=== PATIENT | female | born 1965 | race Caucasian/White ===

== ENCOUNTER 2018-04-02 05:49 | Emergency (ER) | payer BC ==
[~2018-04-02] VITALS: Ht 165.1 cm; Wt 99.8 kg
--- OUTSIDE RECORDS SUMMARY | 2018-04-02 05:50 | XMS REPORT | Continuity of Care Document ---
Author Author [facility] Organization [facility] Address Unknown Phone Unavailable Care Team Providers Care Sql Ssrs Ssis Developer Name Role Phone MD Cira, Gely GALICIA Unavailable Insurance Providers Payer name Policy type / Coverage type Policy ID Covered green [place] ID [place] Encounters Encounter Performer Location Date Office Visit Gely Denis MD [facility] Dec 08, 2013 Problems Problem Effective Dates Problem Status HYPERTENSION - BENIGN ESSENTIAL Dec 08, 2013 Active OBESITY, UNSPECIFIED Dec 08, 2013 Active HYPERLIPIDEMIA Dec 08, 2013 Active Procedures Date Description Comments Dec 08, 2013 smoking status Never smoker Medications Medication Instructions Start Date Status TEKTURNA HCT 300-25 MG TABS one tab daily Dec 08, 2013 Active ATORVASTATIN CALCIUM 10 MG TABS one tab daily Dec 08, 2013 Active Vital Signs Date Description Test Result Dec 08, 2013 weight E&M WEIGHT 212 lb Dec 08, 2013 height E&M HEIGHT 65 in Dec 08, 2013 temperature E&M TEMPERATURE 98.1 deg f Dec 08, 2013 pulse rate E&M PULSE RATE 68 /min Dec 08, 2013 blood pressure, systolic BP SYSTOLIC 132 mm Hg Dec 08, 2013 blood pressure, diastolic BP DIASTOLIC 88 mm Hg Results Date Description Test Name Value Reference Interpretation Status Dec 08, 2013 hemoglobin A1C, blood, as % of total hemoglobin HGBA1C 5.3 % <=5.6 Dec 08, 2013 cholesterol, serum CHOLESTEROL 169 mg/dl <=199 Dec 08, 2013 triglyceride, serum, fasting TRIGLYCERIDE 116 mg/dl <=149 Dec 08, 2013 HDL cholesterol, serum HDL 65 mg/dl >=61 Dec 08, 2013 LDL cholesterol, serum LDL 81 mg/dl <=99 Dec 08, 2013 sodium, serum SODIUM 137 MEQ/L mmol/L 135-145 Dec 08, 2013 potassium, serum POTASSIUM 4.0 MEQ/L mmol/L 3.5-5.1 Dec 08, 2013 creatinine, serum CREATININE 0.7 mg/dL 0.5-1.4 Dec 08, 2013 urea nitrogen, blood BUN 12 mg/dL 7-Dec 08, 2013 urea nitrogen/creatinine ratio, serum BUN/CREAT 17 null -Dec 08, 2013 albumin, serum ALBUMIN 4.3 g/dL 3.5-5.0 Dec 08, 2013 calcium, serum CALCIUM 9.8 mg/dL 8.5-10.5 Dec 08, 2013 alanine aminotransferase (SGPT), serum SGPT (ALT) 28 U/L 0-Dec 08, 2013 aspartate aminotransferase (SGOT), serum SGOT (AST) 17 U/L 0-37 Dec 08, 2013 alkaline phosphatase, serum ALK PHOS 72 U/L 39-136 Dec 08, 2013 thyroid stimulating hormone, serum TSH 1.570 uIU/mL 0.360-3.740 Dec 08, 2013 triiodothyronine, serum T3, TOTAL 74 ng/dL Units converted. See lab report for original value. Dec 08, 2013 hemoglobin A1C, blood, as % of total hemoglobin HGBA1C 5.3 % <=5.6 Dec 08, 2013 cholesterol, serum CHOLESTEROL 169 mg/dl <=199 Dec 08, 2013 triglyceride, serum, fasting TRIGLYCERIDE 116 mg/dl <=149 Dec 08, 2013 HDL cholesterol, serum HDL 65 mg/dl >=61 Dec 08, 2013 LDL cholesterol, serum LDL 81 mg/dl <=99 Dec 08, 2013 sodium, serum SODIUM 137 MEQ/L mmol/L 135-145 Dec 08, 2013 potassium, serum POTASSIUM 4.0 MEQ/L mmol/L 3.5-5.1 Dec 08, 2013 creatinine, serum CREATININE 0.7 mg/dL 0.5-1.4 Dec 08, 2013 urea nitrogen, blood BUN 12 mg/dL -Dec 08, 2013 urea nitrogen/creatinine ratio, serum BUN/CREAT 17 null -Dec 08, 2013 albumin, serum ALBUMIN 4.3 g/dL 3.5-5.0 Dec 08, 2013 calcium, serum CALCIUM 9.8 mg/dL 8.5-10.5 Dec 08, 2013 alanine aminotransferase (SGPT), serum SGPT (ALT) 28 U/L 0-65 Dec 08, 2013 aspartate aminotransferase (SGOT), serum SGOT (AST) 17 U/L 0-37 Dec 08, 2013 alkaline phosphatase, serum ALK PHOS 72 U/L 39-136 Dec 08, 2013 thyroid stimulating hormone, serum TSH 1.570 uIU/mL 0.360-3.740 Dec 08, 2013 triiodothyronine, serum T3, TOTAL 74 ng/dL Units converted. See lab report for original value.
--- OUTSIDE RECORDS SUMMARY | 2018-04-02 05:50 | XMS REPORT | Continuity of Care Document ---
Author Author [facility] Organization [facility] Address Unknown Phone Unavailable Care Team Providers Care Hotel Supplies Salesperson Name Role Phone MD Fatuma, Faisal GALICIA Unavailable Insurance Providers Payer name Policy type / Coverage type Policy ID Covered green [place]) [place] Encounters Encounter Performer Location Date Office Visit Faisal Burris MD [facility] Jun 22, 2014 Problems Problem Effective Dates Problem Status HYPERTENSION - BENIGN ESSENTIAL Dec 08, 2013 Active OBESITY, UNSPECIFIED Dec 08, 2013 Active HYPERLIPIDEMIA Dec 08, 2013 Active Procedures Date Description Comments Dec 08, 2013 smoking status Never smoker Jun 22, 2014 smoking status Never smoker Medications Medication Instructions Start Date Status TEKTURNA HCT 300-25 MG TABS one tab daily Dec 08, 2013 Active ATORVASTATIN CALCIUM 10 MG TABS one tab daily Dec 08, 2013 Active Vital Signs Date Description Test Result Dec 08, 2013 weight E&M - 3141-9 WEIGHT 212 lb Dec 08, 2013 height E&M - 8302-2 HEIGHT 65 in Dec 08, 2013 temperature E&M TEMPERATURE 98.1 deg f Dec 08, 2013 pulse rate E&M - 8867-4 PULSE RATE 68 /min Dec 08, 2013 blood pressure, systolic - 8480-6 BP SYSTOLIC 132 mm Hg Dec 08, 2013 blood pressure, diastolic - 8462-4 BP DIASTOLIC 88 mm Hg Jun 22, 2014 height E&M - 8302-2 HEIGHT 65 in Jun 22, 2014 weight E&M - 3141-9 WEIGHT 215 lb Jun 22, 2014 temperature E&M TEMPERATURE 98.0 deg f Jun 22, 2014 pulse rate E&M - 8867-4 PULSE RATE 94 /min Jun 22, 2014 blood pressure, systolic - 8480-6 BP SYSTOLIC 154 mm Hg Jun 22, 2014 blood pressure, diastolic - 8462-4 BP DIASTOLIC 87 mm Hg Results Date Description Test Name [...] 2013 urea nitrogen, blood BUN 12 mg/dL 7-22 Dec 08, 2013 urea nitrogen/creatinine ratio, serum BUN/CREAT 17 null 6-25 Dec 08, 2013 albumin, serum ALBUMIN 4.3 g/dL [...] TSH 1.570 uIU/mL 0.360-3.740 Dec 08, 2013 triiodothyronine (T3), serum T3, TOTAL 74 ng/dL Units converted. [...] urea nitrogen/creatinine ratio, serum BUN/CREAT 17 null 6-25 Dec 08, 2013 albumin, serum ALBUMIN 4.3 g/dL [...] TSH 1.570 uIU/mL 0.360-3.740 Dec 08, 2013 triiodothyronine (T3), serum T3, TOTAL 74 ng/dL Units converted. See lab report for original value.
--- OUTSIDE RECORDS SUMMARY | 2018-04-02 05:50 | XMS REPORT | Continuity of Care Document ---
Author Author [facility] Address Unknown Phone Unavailable Problems Problem Status Onset Date Classification Date Reported Comments Source HYPERTENSION - BENIGN ESSENTIAL Active 12/08/2013 Condition 06/22/2014 Medical Group OBESITY, UNSPECIFIED Active 12/08/2013 Condition 06/22/2014 Medical Group HYPERLIPIDEMIA Active 12/08/2013 Condition 06/22/2014 Medical [facility] Medications Medication Details Route Status Patient Instructions Ordering Provider Order Date Source TEKTURNA HCT 300-25 MG TABS one tab daily Active 12/08/2013 Medical Group ATORVASTATIN CALCIUM 10 MG TABS one tab daily Active 12/08/2013 Medical Group ATORVASTATIN CALCIUM 10 MG TABS one tab daily Active 12/08/2013 [facility] Group Allergies, Adverse Reactions, Alerts Substance Category Reaction Severity Reaction type Status Date Reported Comments Source Immunizations Immunization Date Given Site Status Last Updated Comments Source Results Order Name Results Value Reference Range Date Interpretation Comments Source Chemistry HGBA1C 5.3 % - 5.6 12/08/2013 Medical [facility] Chemistry CHOLESTEROL 169 mg/dl - 199 12/08/2013 Medical [facility] Chemistry TRIGLYCERIDE 116 mg/dl - 149 12/08/2013 [facility] Chemistry HDL 65 mg/dl >=61 12/08/2013 Medical [facility] Chemistry LDL 81 mg/dl - 99 12/08/2013 [facility] Chemistry SODIUM 137 MEQ/L mmol/L 135 - 145 12/08/2013 [facility] POTASSIUM 4.0 MEQ/L mmol/L 3.5 - 5.1 12/08/2013 [facility] CREATININE 0.7 mg/dL 0.5 - 1.4 12/08/2013 [facility] BUN 12 mg/dL 7 - 22 12/08/2013 [facility] Chemistry BUN/CREAT 17 6 - 25 12/08/2013 [facility] ALBUMIN 4.3 g/dL 3.5 - 5.0 12/08/2013 [facility] Chemistry CALCIUM 9.8 mg/dL 8.5 - 10.5 12/08/2013 [facility] Chemistry SGPT (ALT) 28 U/L 0 - 65 12/08/2013 [facility] SGOT (AST) 17 U/L 0 - 37 12/08/2013 [facility] Chemistry ALK PHOS 72 U/L 39 - 136 12/08/2013 [facility] TSH 1.570 uIU/mL 0.360 - 3.740 12/08/2013 Medical [facility] Chemistry T3, TOTAL 74 ng/dL 12/08/2013 [facility] Chemistry HGBA1C 5.3 % - 5.6 12/08/2013 [facility] CHOLESTEROL 169 mg/dl - 199 12/08/2013 [facility] TRIGLYCERIDE 116 mg/dl - 149 12/08/2013 [facility] HDL 65 mg/dl >=61 12/08/2013 [facility] LDL 81 mg/dl - 99 12/08/2013 [facility] SODIUM 137 MEQ/L mmol/L 135 - 145 12/08/2013 [facility] Chemistry POTASSIUM 4.0 MEQ/L mmol/L 3.5 - 5.1 12/08/2013 [facility] CREATININE 0.7 mg/dL 0.5 - 1.4 12/08/2013 [facility] BUN 12 mg/dL 7 - 22 12/08/2013 Medical [facility] Chemistry BUN/CREAT 17 6 - 25 12/08/2013 [facility] ALBUMIN 4.3 g/dL 3.5 - 5.0 12/08/2013 [facility] CALCIUM 9.8 mg/dL 8.5 - 10.5 12/08/2013 Medical [facility] Chemistry SGPT (ALT) 28 U/L 0 - 65 12/08/2013 [facility] Chemistry SGOT (AST) 17 U/L 0 - 37 12/08/2013 [facility] Chemistry ALK PHOS 72 U/L 39 - 136 12/08/2013 [facility] Chemistry TSH 1.570 uIU/mL 0.360 - 3.740 12/08/2013 [facility] Chemistry T3, TOTAL 74 ng/dL 12/08/2013 [facility] Vital Signs Vital Sign Value Date Comments Source Height 65 06/22/2014 [facility] Weight 215 06/22/2014 [facility] Temperature Oral (F) 98.0 F 06/22/2014 [facility] Heart Rate 94 06/22/2014 [facility] Systolic (mm Hg) 154 06/22/2014 [facility] Diastolic (mm Hg) 87 06/22/2014 [facility] Weight 212 12/08/2013 [facility] Height 65 12/08/2013 [facility] Temperature Oral (F) 98.1 F 12/08/2013 [facility] Heart Rate 68 12/08/2013 [facility] Systolic (mm Hg) 132 12/08/2013 [facility] Diastolic (mm Hg) 88 12/08/2013 [facility] Encounters Location Location Details Encounter Type Encounter Number Reason For Visit Attending Provider ADM Date DC Date Status Source [facility] Lab Report [id number] Gely Denis MD 12/08/2013 [facility] [id number] Gely Denis MD 12/08/2013 12/08/2013 [facility] Office Visit [id number] Faiasl Burris MD 06/22/2014 06/22/2014 [facility] Procedures Procedure Code Date Perfomer Comments Source
--- OUTSIDE RECORDS SUMMARY | 2018-04-02 05:50 | XMS REPORT | Continuity of Care Document ---
Author Author [facility] Organization [facility] Address Unknown Phone Unavailable Care Team Providers Care Foundry Molder Name Role Phone MD Cira, Gely GALICIA Unavailable Insurance Providers Payer name Policy type / Coverage type Policy ID Covered alliance party [place] Encounters Encounter Performer Location Date Lab Report Gely Densi MD [facility] Dec 08, 2013 Problems Problem Effective Dates [...]
[2018-04-02] MEDS ORDERED: HYDROCODONE/APAP 10MG-325MG TAB PO ONE (06:15)
--- NOTE | 2018-04-02 07:08 | Diagnostic Imaging Report ---
PROCEDURE:X-RAY LEFT KNEE, THREE OR MORE VIEWS COMPARISON:None. INDICATIONS:LEFT KNEE PAIN FINDINGS: No acute, displaced fracture or dislocation. Joint spaces are well-maintained. Soft tissues are unremarkable. No definite joint effusion. CONCLUSION: No acute osseous abnormality. Dictated by: Jose Aguiar M.D. on 04/02/2018 at 7:16 Electronically approved by: Jose Aguiar M.D. on 04/02/2018 at 7:16
--- NOTE | 2018-04-02 09:37 | Diagnostic Imaging Report ---
TECHNIQUE: Magnetic resonance imaging of the LEFT KNEE was performed WITHOUT injected contrast. HISTORY: Left knee pain COMPARISON: None available. FINDINGS: LIGAMENTS AND TENDONS: ACL: Intact PCL: Intact Collateral ligaments: Intact Iliotibial band: Unremarkable Popliteal tendon: Intact Extensor mechanism: Intact JOINT: Menisci: Medial: Horizontal tear of the posterior horn with degeneration and partial tearing of the posterior root results in meniscal extrusion. Lateral: Intact Articular Cartilage: Medial Compartment: Partial-thickness cartilage loss. Lateral Compartment: No focal defect. Patellofemoral Compartment: Partial-thickness cartilage loss. Joint Fluid: Moderate joint effusion and Perez's cyst. BONE: No focal or infiltrative bone marrow replacing abnormality. No acute fracture. SOFT TISSUES: Otherwise, unremarkable. IMPRESSION: Medial meniscus horizontal tear body and posterior horn with partial tearing of the posterior root results in meniscal extrusion and partial thickness cartilage loss. Moderate joint effusion. Signed by: Dr. Sami Higgins M.D. on 04/02/2018 9:34 AM
== END 2018-04-02 10:21 | disposition home or self-care (01) ==
LOC: ER 05:49
DX: M25.562 Pain in left knee (principal); S83.412A Sprain of medial collateral ligament of left knee, initial encounter; M71.22 Synovial cyst of popliteal space [Baker], left knee
CPT/HCPCS: 93971; 99284

== ENCOUNTER → 2018-05-02 | Outpatient (RCR) | payer BC | LOC: PT 04-17 14:46 | PROVIDERS: ATTEND Specialist | DX: M23.92 Unspecified internal derangement of left knee (principal); M23.332 Other meniscus derangements, other medial meniscus, left knee ==

== ENCOUNTER 2018-05-20 16:00 | Outpatient (RCR) | payer BC | END 2018-06-02 | LOC: PT 16:00 | PROVIDERS: ATTEND Specialist | DX: M23.332 Other meniscus derangements, other medial meniscus, left knee (principal); M25.562 Pain in left knee; M62.81 Muscle weakness (generalized); R26.2 Difficulty in walking, not elsewhere classified ==

== ENCOUNTER → 2020-06-02 | Outpatient (CLI) | payer OTHER ==
[~2020-06-02] MED LIST: COVID-19 VACC, MRNA(MODERNA)/PF 100 MCG/0.5 ML VIAL IM ONE
== END ==
LOC: VACCPMC 08:00
DX: Z23 Encounter for immunization (principal); Z20.828 Contact with and (suspected) exposure to other viral communicable diseases

== ENCOUNTER → 2020-07-04 | Outpatient (CLI) | payer OTHER | LOC: VACCPMC 07:17 | DX: Z23 Encounter for immunization (principal); Z20.822 Contact with and (suspected) exposure to COVID-19 | CPT/HCPCS: 0012A; 91301 ==

== ENCOUNTER → 2020-11-24 | Day surgery (SDC) | payer BC ==
[~2020-11-24] MED LIST changes: +ATORVASTATIN CA10 MG PO; +CENTRUM ADULTS1 EACH PO; -COVID-19 VACC, MRNA(MODERNA)/PF 100 MCG/0.5 ML VIAL IM ONE; +FENTANYL CITRATE/PF 100MCG/2 ML INJ ONE; +GLUCAGON FOR INJ 1 MG VIAL ONE; +HYOSCYAMINE SULFATE 0.5 MG/ML INJ ONE; +LABETALOL HCL 5 MG/ML 20ML VIAL ONE; +LIDOCAINE HCL 2% LOCAL INJ 5 ML SDV VIAL INJ ONE; +METOCLOPRAMIDE HCL 10 MG/2ML VIAL ONE; +MIDAZOLAM HCL 2 MG/2 ML VIAL ONE; +OLMESARTAN-HCT1 EAC2 PO; +POVIDONE IODINE 0.05% 0.05 % ML PO ONE; +PROPOFOL IV EMULSION 10 MG/ML 20 ML VIAL ONE; +ZYRTEC10 M3 PO
[2020-11-24 15:55] VITALS: BP 130/81
== END | disposition home or self-care (01) ==
LOC: OR 11:04
PROVIDERS: ATTEND Internal Medicine Gastroenterology
DX: Z12.11 Encounter for screening for malignant neoplasm of colon (principal); K31.7 Polyp of stomach and duodenum; K29.70 Gastritis, unspecified, without bleeding; K22.10 Ulcer of esophagus without bleeding; K21.00 Gastro-esophageal reflux disease with esophagitis, without bleeding; K22.8 Other specified diseases of esophagus; K44.9 Diaphragmatic hernia without obstruction or gangrene; K31.89 Other diseases of stomach and duodenum; K57.30 Diverticulosis of large intestine without perforation or abscess without bleeding; K64.8 Other hemorrhoids; R06.83 Snoring; I10 Essential (primary) hypertension; F41.9 Anxiety disorder, unspecified; Z01.810 Encounter for preprocedural cardiovascular examination; Z68.28 Body mass index [BMI] 28.0-28.9, adult; Z80.0 Family history of malignant neoplasm of digestive organs
CPT/HCPCS: 43239; 45378; 93005; C9113; J1610; J1980; J2001; J2250; J2704; J2765; J3010; J3490